=== PATIENT | male | born 1965 | race Caucasian/White ===

== ENCOUNTER 2025-03-17 15:42 | Outpatient (CLI) | payer BC, SELFPAY ==
--- NOTE | ~2025-03-17 | MR_ITS ---
EXAMINATION: MR brain/brain stem wo con DATE: 03/17/2025 16:11 INDICATION: Right facial weakness. TECHNIQUE: Magnetic resonance imaging (MRI) of the brain and brainstem was performed without intravenous contrast. COMPARISON: None. FINDINGS: There is no intracranial hemorrhage, acute infarction, or abnormal intracranial mass lesion. 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 The ventricles are normal in size. The orbits are normal. There is mild mucosal thickening in the paranasal sinuses. The mastoid air cells are normal. IMPRESSION: 1. Small old infarct in left cerebellum. Reviewed, dictated and finalized at location E. ODIAL OPERATIONS MANAGER
== END 2025-03-17 15:43 | disposition home or self-care (01) ==
LOC: MICIMG 15:43
PROVIDERS: PCP Nurse Practitioner Family; Visit Provider Nurse Practitioner Family
DX: R29.810 Facial weakness (principal); M62.81 Muscle weakness (generalized)
CPT/HCPCS: 70551

== ENCOUNTER 2025-03-23 07:56 | Outpatient (CLI) | payer OTHER, SELFPAY ==
[2025-03-23 09:32] LABS: Hemoglobin A1C 5.5 % (<5.7)
[2025-03-23 09:33] LABS: Partial Thromboplastin Time 24.5 Seconds (22.3-36.8)
[2025-03-23 10:34] LABS: MRSA (PCR) NOT DETECTED (NOT DETECTE)
== END 2025-03-23 07:57 | disposition home or self-care (01) ==
LOC: ANHSURGERY 08:02
PROVIDERS: PCP Nurse Practitioner Family; Visit Provider Orthopaedic Surgery
DX: M17.11 Unilateral primary osteoarthritis, right knee (principal); Z01.818 Encounter for other preprocedural examination
CPT/HCPCS: 80307; 83036; 85730; 86850; 86900; 86901; 87641

== ENCOUNTER 2025-03-28 18:43 | Observation (INO) | payer OTHER, SELFPAY ==
--- NOTE | 2025-03-23 07:59 | PC.NURSE ---
[facility] has started construction of its new state of the art ER which will open Spring 2026. With this, we anticipate parking may be a challenge for some our surgical patients and families. Parking spaces are limited but are available for all Surgical, obstetrics, and ER patients sharing this lot. If you arrive and find you are having a hard time finding a parking space, please note that we understand the challenges, please drive around the hospital and park near Hospital Entrance 1. When you enter this entrance, you can ask a volunteer to direct or take you back to the surgical waiting area to check in. We appreciate everyone?s understanding of these expected challenges while we build for your future. Report to the Outpatient Waiting Room, entrance under the green pavilion located off [address], at time _8 am on date _03/27/25 . Planned Procedure Time: _10 am .? Time changes happen often and if your time is changed the preop area will call you the afternoon before. - You and your visitor will be asked to self-screen and do not enter if you have any COVID symptoms. Please call surgeon if you need to reschedule. - A mask is optional within the hospital at this time. Patients may have clear liquids (water, carbonated beverages, clear teas, apple juice) until 3 hours prior to surgery( 7am) with a maximum of 20 ounces. - No food from midnight until time of surgery and no smoking, or chewing tobacco (or any form of nicotine). No chewing gum, candy or mints. Take only the following medications with a SIP of water on the morning of surgery: AMLODIPINE,LEVOTHYROXINE,HYDROCODONE IF NEEDED FOR PAIN DO NOT STOP ANY OF YOUR OTHER PRESCRIPTION MEDICATIONS PRIOR TO SURGERY EXCEPT THE FOLLOWING Hold all vitamins and supplements for 3 days per anesthesiologist. Medications to discontinue per physician ___VALENTINGOVY_HOLD 10 DAYS PRE OP ANESTHESIA LAST DOSE03/16/25. PT STATES LAST DOSE WAS 03/19/25 IBUPROFEN HOLD 7 DAYS PRE OP PER DR MOORE LAST DOSE 03/19/25 Please no make-up, nail persian, hairspray, perfume, deodorant, or body powder the day of surgery.? No jewelry (including any body piercings) or valuables the day of surgery, leave them at home.? Please take a shower or bath the night before, or the morning of, surgery with an antibacterial soap.? Wear comfortable, loose fitting clothing.? Children are encouraged to wear pajamas. - Jewelry must be removed prior to entering the operating room.? Rings and piercings that are not removed may be cut off. - The hospital will not accept responsibility for valuables.? - Please leave all valuables, including medications, at home the day of surgery. If you are going home after surgery, a licensed sprinkler truck driver must drive you home.? - NO public transportation without another adult if you receive anesthesia. - We recommend that an adult stay with you for 24 hours following discharge. - We also recommend that you do not drive, make important decision, drink alcoholic beverages, or take any drugs that were not prescribed by your health care provider for at least 24 hours after your discharge time. For Pediatric surgeries, we recommend two adults accompany the child home. Follow any additional instructions given to you from your surgeon. VERBAL AND WRITTEN instructions given to __PATIENT and asked if any additional questions and then verbalized understanding. Patient advised to call surgeon office or pre surgery nurse liaison [phone] if any additional questions.
[2025-03-23 08:05] VITALS: BMI 32.3
[2025-03-23 09:04] VITALS: BP 136/82; PULSE 73; RESP 18; TEMP 37; O2SAT 100
[2025-03-27] VITALS (17 sets, daily range): BP systolic 109–131; BP diastolic 59–73; PULSE 72–99; RESP 11–18; TEMP 36.1–37; O2SAT 89–100; BMI 31.9
--- OUTSIDE RECORDS SUMMARY | 2025-03-27 01:47 | XMS_ITS | Clinical Summary ---
Author Organization [facility] Address [address] [place] [id number] Care Team Providers Care Cattle Dipper Name Role Phone Zac Calloway MD Primary Care Provider Allergies No known active allergies Medications albuterol HFA (PROVENTIL HFA,VENTOLIN HFA,PROAIR HFA) 90 mcg/actuation inhalerIndications :Acute Asthma Attack Inhale 2 puffs 4 (four) times a day Active budesonide-formote roL (SYMBICORT) 160-4.5 mcg/actuation inhaler Inhale 2 puffs 2 (two) times a day Rinse mouth with water after use. Do not swallow. Active cetirizine (ZyrTEC) 10 mg tablet Take 10 mg by mouth daily Active etodolac (LODINE) 200 mg capsule Take 200 mg by mouth 2 (two) times a day Active levothyroxine (SYNTHROID) 50 mcg tablet Take 50 mcg by mouth agent licensing clerk before breakfast Active lisinopriL (PRINIVIL,ZESTRIL) 20 mg tablet Take 20 mg by mouth daily Active omeprazole (PriLOSEC) 40 mg capsule Take 40 mg by mouth daily Active ondansetron ODT (ZOFRAN-ODT) 4 mg disintegrating tablet Take 4 mg by mouth every 8 (eight) hours as needed for nausea or vomiting Active rOPINIRole (REQUIP) 1 mg tablet Take 1 mg by mouth nightly Active rosuvastatin (CRESTOR) 20 mg tablet Take 20 mg by mouth daily Active tiotropium bromide (SPIRIVA RESPIMAT) 2.5 mcg/actuation inhaler Inhale 2 puffs daily Active traMADoL (ULTRAM) 50 mg tablet Take 50 mg by mouth every 6 (six) hours Active tamsulosin (FLOMAX) 0.4 mg extended release capsule Take 1 capsule (0.4 mg total) by mouth daily While ureteral stents in place 30 capsule 10/30/19 21 Active oxybutynin (DITROPAN) 5 mg tablet Take 1 tablet (5 mg total) by mouth 3 (three) times a day as needed (stent pain) 30 tablet 10/30/19 21 Active docusate sodium (COLACE) 100 mg capsuleIndications :constipation Take 1 capsule (100 mg total) by mouth 2 (two) times a day as needed for constipation 60 capsule 10/30/19 21 Active cephalexin (KEFLEX) 500 mg capsuleIndications :Prophylaxis, Medical Take one capsule by mouth 30 minutes before stent removal 1 capsule 10/30/19 21 Active Active Problems Problem Noted Date Diagnosed Date Kidney stone on right side 10/28/2020 Right flank pain 10/28/2020 Resolved Problems Problem Noted Date Diagnosed Date Resolved Date H/O right flank pain 10/28/2020 021 Surgical History Surgery Date Site/Laterality Comments APPENDECTOMY CHOLECYSTECTOMY OPEN Medical History Medical History Date Comments Hypertension Thyroid disease Asthma GERD (gastroesophageal reflux disease) Restless leg syndrome Kidney stone Family History Medical History Relation Name Comments Heart disease Brother Lung cancer Father Uterine cancer Mother Relation Name Status Comments Brother Father Mother Social History Tobacco Use Types Packs/Day Years Used Date Smoking Tobacco: Never Smokeless Tobacco: Never Tobacco Cessation:Counseling Given: No Sex and Gender Information Value Date Recorded Sex Assigned at Not on file Legal Sex 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 [employer]ESS[employer] Gender Identity Male 01/19/2021 3:21 PM CDT Sexual Orientation Not on file Last Filed Vital Signs Vital Sign Reading Time Taken Comments Blood Pressure 145/87 10/29/2020 3:00 PM CDT Pulse 65 10/29/2020 3:00 PM CDT Temperature 36.5 C (97.7 F) 10/29/2020 1:19 PM CDT Returned to unit Respiratory Rate 16 10/29/2020 3:00 PM CDT Oxygen Saturation 97% 10/29/2020 3:0 0 PM CDT Inhaled Oxygen Concentration - - Weight 108.9 kg (240 lb) 10/28/2020 12: 16 AM CDT Height 177.8 cm (5' 10) 10/28/2020 12: 16 AM CDT Body Mass Index 34.44 10/28/2020 12:16 AM CDT Plan of Treatment Health Maintenance Due Date Last Done Comments Colon Cancer Screening-Colonoscopy 1964 Depression Screening 1964 Hepatitis C Screening 1964 Prostate Cancer Screening-PSA 1964 Hepatitis B Screening 1982 Regular Well Visit/Exam 18-64 1982 Zoster Vaccine (1 of 2) 2014 Pneumococcal vaccine <65 (2 of 2 - PCV) 07/22/2015 07/21/2014 Influenza Vaccine (#1) 2024 , 01/02/2018, 01/02/2018, Additional history exists DTaP/Tdap/Td Vaccine (2 - Td or Tdap) 01/13/2032 01/12/2022 Medical Devices Explanted Type Area Exhibitions Curator Device Identifier Shelf Expiration Date Model / Serial / Lot [employer] [id number] Universa 6fr 26cm Radiopaque Positioner Monofilament Tether 2 - Sna - [id number] Implanted:Qty: 1 on 10/29/2020 by Ivná Phillips MD at [facility] Explanted:Qty: 1 on 11/15/2020 by Alia Denson NP Stent Right: [employer] [id number] 08/10/2023 [id number] / NA / [id number] [place] [address] [facility] ACCESS CHOICE ANTHEM ACCESS CHOICE Advance Directives For more information, please contact: [phone] * Full Code (Latest Code Status on File) Date Activated Date Inactivated Comments 10/28/2020 2:51 AM 10/29/2020 10:28 PM Care Teams Cattle Dipper Relationship Specialty Start Date End Date Zac Calloway MD PCP - General Internal Medicine 10/27/20
--- OUTSIDE RECORDS SUMMARY | 2025-03-27 01:47 | XMS_ITS | Clinical Summary ---
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 Gender Identity Not on file Sexual Orientation Not on file Plan of Treatment Health Maintenance Due Date Last Done Comments Hepatitis C Virus (HCV) Screening 1964 TdaP Immunization 1964 Cologuard 2009 Colonoscopy 2009 Colorectal Cancer Screening 2009 Immunochemical Fecal Occult Blood 2009 Zoster Immunization (1 of 2) 2014 Pneumococcal Immunization (50+ years) (2 of 2 - PCV) 07/22/2015 07/21/2014 Influenza Immunization (#1) 12/15/202401/14, 01/02/2018, 01/03/2017, Additional history exists SARS-COV-2 Immunization ( season) 2024 Respiratory Syncytial Virus (RSV) Immunization (Adult) (1 - 1-dose 75+ series) 06/21/2039 Pneumococcal Immunization Combined Discontinued 07/21/2014 Hepatitis B Immunization Aged Out No longer eligible based on patient's age to complete this topic Human Papillomavirus (HPV) Immunization Aged Out No longer eligible based on patient's age to complete this topic Meningococcal Immunization (ACWY) Aged Out No longer eligible based on patient's age to complete this topic Rotavirus Immunization Aged Out No lo nger eligible based on patient's age to complete this topic
[2025-03-27] MEDS: TRANEXAMIC ACID 1,000MG/ISO100 1,000 MG/100 ML BAG 200 MG IVPB (07:55)
[2025-03-27] MEDS: ACETAMINOPHEN 500 MG TABLET 1000 MG PO (07:55)
[2025-03-27] MEDS: LACTATED RINGERS 1,000 ML 30 ML IV CONT ×2 (07:55→11:51)
[2025-03-27] MEDS: VANCOMYCIN 1,500 MG/NS 500 ML BAG 250 MG IVPB (07:55)
--- NOTE | 2025-03-27 08:28 | WPDHPUPDATE1 ---
History and Physical Update Update Date/Time: 03/27/25 08:28 History and Physical has been reviewed, including an updated exam of the patient. There are NO changes in the patient's condition. Risks, benefits, and alternatives have been discussed and questions answered. Patient agrees to proceed with procedure. The planned procedure is a right total knee replacement. The risks include but are not limited to infection DVT bleeding nerve injury, the patient and his and daughter were present they understand the procedure and they are willing to proceed. All questions were asked and answered.
--- NOTE | 2025-03-27 08:31 | PM.IMHP2 ---
H&P: HPI History of Present Illness Date/Time: 03/27/25 08:31 Chief Complaint: Right knee pain Narrative: The patient is 59-year-old with recently symptomatic arthritis of the right knee. The patient was in his usual state of health until he reports twisting his knee more than a year ago while at work with the initiation of it incessant pain that was not responsive to conservative measures which included intra-articular injections, oral anti-inflammatory medications, bracing, topical anti-inflammatory medications. The patient was experiencing persistent severe right knee pain that interfered with his sleep and also with his ability to perform his obligations at work with regards to walking on a regular basis. [facility] Social History Social History Smoking status: Never smoker Additional smoking assessment comments: DENIES ANY FORM OF TOBACCO USE Alcohol intake: current Drinks per week: 5 Living arrangements: with family Spiritual care concerns: No Meds Home Medications and Allergies Home Medications ?Medication ?Instructions ?Recorded ?Confirmed ?Type albuterol sulfate 90 mcg/actuation 2 puff inhalation PRN WHEEZING 03/23/25 03/27/25 History aerosol inhaler allopurinol 100 mg tablet 200 mg PO DAILY 03/23/25 03/27/25 History amlodipine 5 mg tablet 5 mg PO DAILY 03/23/25 03/27/25 History cetirizine 10 mg tablet (Aller-Will) 10 mg PO DAILY PRN allergy symptoms 03/23/25 03/27/25 History ezetimibe 10 mg tablet 10 mg PO DAILY 03/23/25 03/27/25 History hydrocodone 10 mg-acetaminophen 1 tablet PO PRN PRN pain 03/23/25 03/23/25 History 325 mg tablet ibuprofen 200 mg tablet (Advil) 800 mg PO Q6H PRN pain 03/23/25 03/23/25 History levothyroxine 75 mcg tablet 75 mcg PO DAILY 03/23/25 03/27/25 History olmesartan 40 1 tablet PO DAILY 03/23/25 03/27/25 History mg-hydrochlorothiazide 25 mg tablet omeprazole 40 mg capsule,delayed 40 mg PO DAILY 03/23/25 03/27/25 History release semaglutide (weight loss) 1 mg/0.5 1 mg subcut WEEKLY 03/23/25 03/27/25 History mL subcutaneous pen injector (Wegovy) testosterone 4 pump topical DAILY 03/23/25 03/27/25 History tramadol 50 mg tablet 50 mg PO PRN PRN pain 03/23/25 03/23/25 History zolpidem 5 mg tablet 5 mg PO HS 03/23/25 03/27/25 History Allergies Allergy/AdvReac Type Severity Reaction Status Date / Time No Known Allergies Allergy Unknown Unverified 02/03/18 14:21 GRAPE JUICE Allergy Unknown Hives Uncoded 03/23/25 08:10 Exam Narrative: Exam of the patient's right knee shows that he has a moderate effusion with tenderness to palpation over the medial joint he lacks about 5? of full extension and could flex to 100? with significant pain. There is no erythema no warmth. Previous incision site from a previous prepatellar bursectomy is noted. He has intact sensation to this extremity. He has a palpable dorsalis pedis pulse. Quadriceps strength is 4/5 Const: General: cooperative, healthy appearing, comfortable, no acute distress, well developed, alert, awake and Physically active Nutritional Appearance: average body habitus Orientation/consciousness: oriented to person, oriented to place, oriented to time and patient oriented x3 Assessment and Plan Assessment and plan (1) Arthritis of right knee: Code(s): M17.11 - Unilateral primary osteoarthritis, right knee Status: Acute Plan 59-year-old male with right knee arthritis, exacerbation by recent injury sustained at work. His right knee is now symptomatic and nonresponsive to conservative measures. He is therefore indicated for a right total knee replacement. The risks benefits alternatives complications were discussed with the patient and his family. They include but not limited to infection nerve or blood vessel injury bleeding DVT, and they agreed to proceed. All questions were asked and answered
[2025-03-27 08:46] LABS: INR 1.0; Prothrombin Time 13.6 Seconds (11.1-14.7)
--- NOTE | 2025-03-27 08:49 | WPDANESEPPF ---
Anes - Initial Pre Proc Eval Procedure: Operation Date: 03/27/25 09:00 Proposed Procedures p Right Total Knee Arthroplasty - Walter Trejo MD Date/Time: 03/27/25 08:49 Surgeon: Walter Trejo MD Pre Op Diagnosis: Right Knee O A Patient Data Age: 59 Gender: M Height: 1.78 m Weight: 101.1 kg Last Vital Signs Temp 37.0 C 03/27/25 08:15 Pulse 72 03/27/25 08:15 Resp 18 03/23/25 09:04 BP 117/60 03/27/25 08:15 Pulse Ox 97 03/27/25 08:15 O2 Del Method Room Air 03/27/25 08:15 Allergies Allergy/AdvReac Type Severity Reaction Status Date / Time No Known Allergies Allergy Unknown Unverified 02/03/18 14:21 GRAPE JUICE Allergy Unknown Hives Uncoded 03/23/25 08:10 Home Medications ?Medication ?Instructions ?Recorded ?Confirmed ?Type albuterol sulfate 90 mcg/actuation 2 puff inhalation PRN WHEEZING 03/23/25 03/27/25 History aerosol inhaler allopurinol 100 mg tablet 200 mg PO DAILY 03/23/25 03/27/25 History amlodipine 5 mg tablet 5 mg PO DAILY 03/23/25 03/27/25 History cetirizine 10 mg tablet (Aller-Will) 10 mg PO DAILY PRN allergy symptoms 03/23/25 03/27/25 History ezetimibe 10 mg tablet 10 mg PO DAILY 03/23/25 03/27/25 History hydrocodone 10 mg-acetaminophen 1 tablet PO PRN PRN pain 03/23/25 03/23/25 History 325 mg tablet ibuprofen 200 mg tablet (Advil) 800 mg PO Q6H PRN pain 03/23/25 03/23/25 History levothyroxine 75 mcg tablet 75 mcg PO DAILY 03/23/25 03/27/25 History olmesartan 40 1 tablet PO DAILY 03/23/25 03/27/25 History mg-hydrochlorothiazide 25 mg tablet omeprazole 40 mg capsule,delayed 40 mg PO DAILY 03/23/25 03/27/25 History release semaglutide (weight loss) 1 mg/0.5 1 mg subcut WEEKLY 03/23/25 03/27/25 History mL subcutaneous pen injector (Toshia) testosterone 4 pump topical DAILY 03/23/25 03/27/25 History tramadol 50 mg tablet 50 mg PO PRN PRN pain 03/23/25 03/23/25 History zolpidem 5 mg tablet 5 mg PO HS 03/23/25 03/27/25 History Laboratory Tests 03/27/25 08:02 PT 13.6 Seconds (11.1-14.7) INR 1.0 Patient hx anesthesia problems: none Family hx anesthesia problems: none Results Review: All pre-operative results and documents have been reviewed as part of the pre-operative evaluation. [facility] Past Medical History Medical History Chronic, continuous use of opioids GERD (gastroesophageal reflux disease) Gout Hyperlipidemia Hypothyroidism Hypertension Social History Social History Smoking status: Never smoker Additional smoking assessment comments: DENIES ANY FORM OF TOBACCO USE Alcohol intake: current Drinks per week: 5 Living arrangements: with family Spiritual care concerns: No Anes - Eval Final PreProcedure Day of Procedure 03/27/25 08:49 Patient weight: obese Heart: regular rate and rhythm Lungs: clear to auscultation and normal air movement Airway: Mallampati scale Neurological: alert and oriented Last oral intake: >/= 8 hours ASA classification: III Emergent: no Anesthetic plan: proceed Anesthesia type and monitoring: general LMA and standard monitoring Results Review: All pre-operative results and documents have been reviewed as part of the pre-operative evaluation. Informed Consent: The patient's anesthetic plan and its attendant risks and benefits were discussed with the patient/family/POA. Questions were solicited and answers provided to the satisfaction of the patient/family/POA.
[2025-03-27] MEDS: ceFAZolin 2 GM in SODIUM CHLORIDE 0.9% IV 50 ML 100 ML IVPB ×2 (09:05→17:23)
[2025-03-27] MEDS: SODIUM CHLORIDE 0.9% IV 37.7 ML, MORPHINE SULFATE INJ (*CRX) 2 MG, ROPivacaine HCL 1% 2... INFILTRATE (09:40)
[2025-03-27] MEDS: TRANEXAMIC ACID 1,000 MG/10 ML AMPUL 1000 MG IV PUSH (11:07)
[2025-03-27] MEDS: fentaNYL CITRATE INJ (*CRX) 100 MCG/2 ML VIAL 25 MCG IV PUSH ×4 (12:33→13:00)
--- NOTE | 2025-03-27 13:14 | WPDANESPNB ---
Anes - Peripheral Nerve Block Date/Time: 03/27/25 13:14 I have discussed with the patient/family/POA the placement of a peripheral nerve block for post-operative pain management, including associated risks, benefits, complications, and side effects. Alternative methods of post-operative analgesia were detailed. Questions were solicited and answers provided to the satisfaction of the patient/family/POA. Time-Out: A pre-procedural Time-Out was completed immediately before starting the procedure and confirmed: Patient Identification, Site, Procedure, Patient Position and the Availability of Requisite Equipment. Clinical Indications: Acute post-operative pain management requested by the operative surgeon. Nerve Block Insertion Note Anes-nerve block: adductor canal right Patient position: supine Skin prep: chlorhexidine Needle: 22 gauge, stimulating, insulated echogenic needle. Needle length: 80 mm Technique: ultrasound Injectate: bupivacaine 0.5% with epi 5 mcg/ml (30cc - no epi) Observations: tolerated well Complications: none Procedure start time:: 1307 Procedure end time:: 1310
[2025-03-27] MEDS: oxyCODONE HCL (*CRX) 2.5 MG TAB IR 7.5 MG PO (14:37)
[2025-03-27] MEDS: SODIUM CHLORIDE 0.9% IV 1,000 ML 125 ML IV CONT (14:43)
[2025-03-27] MEDS: HYDROmorphone HCL INJ (*CRX) 1 MG/ML SYR 0.5 MG IV PUSH (16:18)
--- NOTE | 2025-03-27 16:27 | W.PM.PROC2 ---
Procedure Note - Detailed Date of Procedure 03/27/25 Pre-op Diagnosis Right Knee Arthritis Post-op Diagnosis Same Procedure Performed Right Total Knee Replacement Surgeon Walter Trejo MD Anesthesia General Indications Failure to respond to conservative management of Right Knee Arthritis Findings Right Knee Arthritis Description of Procedure After interviewing the patient in the holding area with his Taina I answered all questions. The right knee was then marked in the holding area. Patient was then brought to the operating room placed in supine position which time he underwent general anesthesia a time-out was performed prior to the procedure in order to verify correct site for surgery correct patient and correct procedure as well as to verify that antibiotics IV were administered within 1 hour of the incision time The right lower extremity was prepped and draped in standard sterile fashion with tourniquet around the thigh was placed but was not used. Midline incision was made dissection carried down medial arthrotomy performed the distal femur exposed marginal osteophytes removed. I then created an opening hole into the distal femur to place my intramedullary sebastian. I then placed my intramedullary sebastian then placed in my distal femoral cutting guide. I then resected 9 mm off the medial side and 5 mm off the lateral side with a distal valgus cut of 5? of valgus. I then proceeded to place my sizing guide and determined that he had 3? of external rotation determined a size 5 for the femoral side. I then proceeded to do my 4 in 1 cuts my anterior cut posterior cut anterior-posterior chamfer cuts. I then proceeded to turn my attention to the tibia at which time used extramedullary guide to resect 2 mm off the medial side and 7 mm off the lateral side. I then proceeded to irrigate copiously I did my trial I noted that a size 5 with a 10 mm polyethylene spacer with a size 5 tibial plate had excellent toe range of motion with full extension and the medial and lateral compartments were equally tension and symmetric both in flexion and extension and the patella tracked perfectly with no evidence of lateral subluxation. I did remove the osteophytes off of the patella. These were marginal osteophytes. I then proceeded to prepare the proximal tibia. I then placed the tibial component in 1st with a 10 mm polyethylene spacer and then a 5 size 5 femoral component. The exact same stability profile was noted. We then irrigated copiously and injected with Bia's solution the periarticular tissues. Attain hemostasis. I then proceeded to close the medial arthrotomy using 2.0 Vicryl suture interrupted and closed skin using 2-0 Vicryl suture and then a glue was placed. The patient was then transferred to the recovery room in stable condition. Implants Destin noncemented total knee replacement with a size 5 femur and a size 5 tibia with a 10 mm polyethylene spacer. Estimated Blood Loss 100 Tourniquet Time Total Tourniquet Time: 0 Drains No Packing No Pathology None sent Complications No immediate complications Condition Stable Disposition PACU
[2025-03-27] MEDS: ACETAMINOPHEN 325 MG TABLET 650 MG PO (17:23)
[2025-03-27] MEDS: KETOROLAC 15 MG/ML VIAL (*BKC) IV PUSH (17:24)
[2025-03-27] MEDS: oxyCODONE HCL (*CRX) 5 MG TAB IR PO ×2 (18:38→22:36)
[2025-03-27] MEDS: ONDANSETRON INJ 4 MG/2 ML VIAL IV PUSH (20:44)
[2025-03-27] MEDS: HYDROmorphone HCL INJ (*CRX) 1 MG/ML SYR IV PUSH (20:44)
[2025-03-27] MEDS: ASPIRIN 81 MG ENTERIC TABLET PO (20:45)
[2025-03-27] MEDS: FAMOTIDINE 20 MG TABLET PO (20:46)
[2025-03-27] MEDS: SENNA/DOCUSATE SODIUM TABLET 2 TAB PO (20:46)
--- NOTE | ~2025-03-28 | XR_ITS ---
EXAMINATION: [id number] DATE: 03/27/2025 12:20 INDICATION: Postoperative evaluation following right total knee arthroplasty. TECHNIQUE: Anteroposterior and lateral views of the right knee were obtained. COMPARISON: None. FINDINGS: Right total knee arthroplasty without patellar resurfacing appears well seated and in near anatomic alignment. No fractures identified. Expected postoperative subcutaneous and intra-articular gas. IMPRESSION: 1. Right total knee arthroplasty, negative for postoperative purposes. Reviewed, dictated and finalized at location A. HMASTER LEAD
[2025-03-28] MEDS: HYDROmorphone HCL INJ (*CRX) 1 MG/ML SYR IV PUSH ×6 (00:28→22:27)
[2025-03-28] MEDS: ACETAMINOPHEN 325 MG TABLET 650 MG PO ×4 (00:29→17:59)
[2025-03-28] MEDS: KETOROLAC 15 MG/ML VIAL (*BKC) IV PUSH ×4 (00:29→17:59)
[2025-03-28] MEDS: ceFAZolin 2 GM in SODIUM CHLORIDE 0.9% IV 50 ML 100 ML IVPB ×2 (01:14→09:26)
[2025-03-28 01:54] VITALS: BP 129/65; PULSE 86; RESP 17; TEMP 36.2; O2SAT 97
[2025-03-28] MEDS: oxyCODONE HCL (*CRX) 5 MG TAB IR PO ×5 (02:23→20:35)
[2025-03-28 05:10] VITALS: BP 105/60; PULSE 68; RESP 17; TEMP 36.8; O2SAT 98
[2025-03-28 06:24] LABS: Hematocrit 34.6 % (42.0-52.0); Hemoglobin 10.7 g/dL (14.0-18.0); Immature Granulocyte Percent A 0.4 % (0-0.5); Lymphocytes Absolute Auto 0.96 K/mm3 (0.9-3.2); Mean Corpuscular HGB Conc 30.9 g/dl (32-36); Mean Corpuscular Hemoglobin 23.1 pg (26-34); Mean Corpuscular Volume 74.6 fl (80-100); Nucleated Red Blood Cells Absolute Auto 0.000 K/mm3 (0.0-0.012); Nucleated Red Blood Cells Perc 0.0 % (0.0-0.2); Platelet Count Result 259 k/mm3 (150-375); Red Blood Count 4.64 M/mm3 (4.6-6.20); White Blood Count 8.5 K/mm3 (4.5-10.0)
[2025-03-28] MEDS: LEVOTHYROXINE SODIUM 75 MCG TABLET PO (06:29)
[2025-03-28 06:43] LABS: Anion Gap 6 mmol/L (4-12); Blood Urea Nitrogen 17 mg/dL (9-20); Calcium 8.6 mg/dL (8.4-10.2); Carbon Dioxide 27 mmol/L (22-30); Chloride 102 mmol/L (98-107); Estimated CRCL calculation 68 ml/min; Estimated Glomerular Filt Rate 60; Glucose 104 mg/dL (65-110); Potassium 3.4 mmol/L (3.4-5.0); Sodium 135 mmol/L (137-145)
[2025-03-28 06:45] LABS: Hypochromasia Occasional; Microcytosis 1+ (NORMAL); Ovalocytes 1+
[2025-03-28 06:47] LABS: Schistocytes None Seen
[2025-03-28] MEDS: HYDROmorphone HCL INJ (*CRX) 1 MG/ML SYR 0.5 MG IV PUSH (07:53)
[2025-03-28] MEDS: OLMESARTAN MEDOXOMIL 20 MG TABLET 40 MG PO (07:55)
[2025-03-28] MEDS: EZETIMIBE 10 MG TABLET PO (07:55)
[2025-03-28] MEDS: SENNA/DOCUSATE SODIUM TABLET 2 TAB PO ×2 (07:56→20:36)
[2025-03-28] MEDS: ASPIRIN 81 MG ENTERIC TABLET PO ×2 (07:56→20:34)
[2025-03-28] MEDS: FAMOTIDINE 20 MG TABLET PO ×2 (07:56→15:41)
[2025-03-28] MEDS: PANTOPRAZOLE 40 MG TABLET PO ×2 (07:56→20:36)
[2025-03-28 10:09] VITALS: BP 115/65; PULSE 85; RESP 20; TEMP 35.7; O2SAT 95
[2025-03-28 14:09] VITALS: BP 104/62; PULSE 75; RESP 19; TEMP 36.2; O2SAT 93
[2025-03-28 21:12] VITALS: BP 123/51; PULSE 85; RESP 18; TEMP 36.4; O2SAT 98
[2025-03-29] MEDS: oxyCODONE HCL (*CRX) 5 MG TAB IR PO ×3 (00:29→09:35)
[2025-03-29] MEDS: ACETAMINOPHEN 325 MG TABLET 650 MG PO ×3 (00:30→11:53)
[2025-03-29] MEDS: HYDROmorphone HCL INJ (*CRX) 1 MG/ML SYR IV PUSH (03:01)
[2025-03-29 04:30] VITALS: BP 142/69; PULSE 100; RESP 16; TEMP 36.7; O2SAT 95
[2025-03-29] MEDS: LEVOTHYROXINE SODIUM 75 MCG TABLET PO (05:32)
--- NOTE | 2025-03-29 07:02 | PM.PNORT ---
Progress Note: A&P Assessment and Plan (1) Status post total right knee replacement: Code(s): Z96.651 - Presence of right artificial knee joint Status: Acute Plan POD 1 Right Total Knee doing well, possible discharge tomorrow. Subjective Subjective Date/Time Seen: 03/28/25 3pm Post Op day: 1 (Right total knee) Principal diagnosis: Right Total Knee Replacement Interval history: Pain well controlled, ambulated in hallway with physical therapy, sitting up and comfortable on my interview today with Taina. Exam Narrative: Right knee bandaged and dry Objective Data Vital Signs Vital Signs: Vital Signs - 24 hr 03/28/25 10:09 03/28/25 14:09 03/28/25 21:12 Temperature 35.7 C L 36.2 C L 36.4 C L Pulse Rate 85 75 85 Respiratory Rate 20 19 18 Blood Pressure 115/65 104/62 123/51 L Pulse Oximetry 95 93 98 03/29/25 04:30 Temperature 36.7 C Pulse Rate 100 Respiratory Rate 16 Blood Pressure 142/69 H Pulse Oximetry 95 Intake/Output Intake/Output: Intake & Output 03/26/25 03/27/25 03/28/25 03/29/25 23:59 23:59 23:59 23:59 Intake Total 740 800 200 Balance 740 800 200 Meds/Results Medications: Active Medications Generic Name Dose Route Start Last Admin Trade Name Freq PRN Reason Stop Dose Admin Acetaminophen 650 mg 03/27/25 18:00 03/29/25 05:32 Acetaminophen 325 Mg Tablet PO 650 mg Q6HR ITALIA Administration Allopurinol 200 mg 03/28/25 09:00 03/28/25 07:56 Allopurinol 100 Mg Tablet PO 200 mg DAILY ITLAIA Administration Amlodipine Besylate 5 mg 03/28/25 09:00 03/28/25 07:55 Amlodipine Besylate 5 Mg Tablet PO 5 mg DAILY ITALIA Administration Aspirin 81 mg 03/27/25 21:00 03/28/25 20:34 Aspirin 81 Mg Enteric Tablet PO 81 mg Q12HR ITALIA Administration Diphenhydramine HCl 25 mg 03/27/25 12:24 Diphenhydramine Hcl Inj 50 Mg/Ml Vial IV PUSH Q6H PRN Itching Ezetimibe 10 mg 03/28/25 09:00 03/28/25 07:55 Ezetimibe 10 Mg Tablet PO 10 mg DAILY ITALIA Administration Famotidine 20 mg 03/27/25 21:00 03/28/25 15:41 Famotidine 20 Mg Tablet PO 20 mg Q12HR ITALIA Administration Gabapentin 600 mg 03/29/25 09:00 Gabapentin 300 Mg Capsule PO TID ITALIA Hydrochlorothiazide 25 mg 03/28/25 09:00 03/28/25 07:55 Hydrochlorothiazide 25 Mg Tablet PO 25 mg QAM [facility] Administration Hydromorphone HCl 1 mg 03/27/25 12:24 03/29/25 03:01 Hydromorphone Hcl Inj (*Crx) 1 Mg/Ml Syr IV PUSH 1 mg Q2H PRN Administration Breakthrough Pain Rated 7-10 or NPO Hydromorphone HCl 0.5 mg 03/27/25 12:24 03/28/25 07:53 Hydromorphone Hcl Inj (*Crx) 1 Mg/Ml Syr IV PUSH 0.5 mg Q2H PRN Administration Breakthrough Pain Rated 4-6 or NPO Levothyroxine Sodium 75 mcg 03/28/25 06:30 03/29/25 05:32 Levothyroxine Sodium 75 Mcg Tablet PO 75 mcg DAILY@0630 [facility] Administration Loratadine 10 mg 03/27/25 13:56 Loratadine 10 Mg Tablet PO QAM PRN allergy symptoms Methocarbamol 500 mg 03/28/25 21:00 03/28/25 20:34 Methocarbamol 500 Mg Tablet PO 500 mg QID [facility]AL[facility] Administration Naloxone HCl 0.1 mg 03/27/25 12:24 Naloxone Hcl 0.4 Mg/Ml Vial IV PUSH Q2M PRN Opiate Reversal Olmesartan 40 mg 03/28/25 09:00 03/28/25 07:55 Olmesartan Medoxomil 20 Mg Tablet PO 40 mg QAM [facility] Administration Ondansetron HCl 4 mg 03/27/25 12:24 03/27/25 20:44 Ondansetron Inj 4 Mg/2 Ml Vial IV PUSH 4 mg Q4H PRN Administration Nausea And Vomiting Oxycodone HCl 5 mg 03/27/25 12:28 03/29/25 05:31 Oxycodone Hcl (*Crx) 5 Mg Tab Ir PO 5 mg Q4H PRN Administration Pain Rated 4-6 Oxycodone HCl 7.5 mg 03/27/25 12:38 03/27/25 14:37 Oxycodone Hcl (*Crx) 2.5 Mg Tab Ir PO 7.5 mg ONCE PRN Administration Pain Pantoprazole Sodium 40 mg 03/28/25 09:00 03/28/25 20:36 Pantoprazole 40 Mg Tablet PO 40 mg Q12HR ITALIA Administration Polyethylene Glycol 17 gm 03/28/25 09:00 03/28/25 07:55 Polyethylene Glycol 3350 17 Gm Powd.Pack PO 17 gm QAM [facility] Administration Senna/Docusate Sodium 2 tab 03/27/25 21:00 03/28/25 20:36 Senna/Docusate Sodium Tablet PO 2 tab Q12HR ITALIA Administration Tramadol HCl 50 mg 03/27/25 12:28 Tramadol Hcl (*Crx) 50 Mg Tablet PO Q4H PRN Pain Rated 1-3 Radiology Results: ITS Impressions Knee X-Ray 03/27/25 12:33 IMPRESSION: 1. Right total knee arthroplasty, negative for postoperative purposes.
--- NOTE | 2025-03-29 08:14 | PCOTNOTE ---
Downgrading frequency (from daily to 3-5x/week) for treatments due to patient progressing well.
[2025-03-29] MEDS: ASPIRIN 81 MG ENTERIC TABLET PO (08:31)
[2025-03-29] MEDS: EZETIMIBE 10 MG TABLET PO (08:32)
[2025-03-29] MEDS: SENNA/DOCUSATE SODIUM TABLET 2 TAB PO (08:32)
[2025-03-29] MEDS: PANTOPRAZOLE 40 MG TABLET PO (08:32)
[2025-03-29] MEDS: FAMOTIDINE 20 MG TABLET PO (08:32)
[2025-03-29] MEDS: GABAPENTIN 300 MG CAPSULE 600 MG PO ×2 (08:32→12:08)
[2025-03-29] MEDS: OLMESARTAN MEDOXOMIL 20 MG TABLET 40 MG PO (08:33)
--- NOTE | 2025-03-29 13:55 | PM.DS ---
DS: Admitting Diagnosis Discharge Date March 29, 2025 Admitting Diagnosis right knee arthritis DS: Discharge Diagnosis Discharge Diagnosis (1) Arthritis of right knee: Code(s): M17.11 - Unilateral primary osteoarthritis, right knee Status: Acute Assessment and Plan: 59-year-old male with end-stage right knee arthritis who underwent a right total knee replacement and did very well postoperatively, postop day 2 he was discharged home and instructed to follow-up with my office in 3-4 days Plan patient is to be discharged on pain medications as well as DVT prophylaxis which is 81 mg of aspirin twice a day for 4 weeks, pain medication prescription has already been provided to the patient in physical therapy will start next week DS: Summary Hospital Course Reason for hospitalization: right knee arthritis Hospital Course: postoperatively the patient did very well with no issues did stairs and walk to the hallway with no issues and was treated postoperatively with aspirin for DVT prophylaxis Status at Discharge Cognitive/behavioral status at discharge: for stable Functional status at discharge: uses cane/walker Time Spent with Patient Time attestation: Total time spent providing and/or coordinating discharge services: Discharge Plan Discharge Attending physician on discharge: Walter Trejo Discharging Clinician: Walter Trejo Anticipated Discharge Date/Time: 03/29/25 13:42 Patient Disposition: Home Activity: may shower Diet: as tolerated Wound Care Instructions: keep dressing dry Discharge Instructions: 1. May remove YULIYA wrap to shower, keep dressing dry. 2. Ankle Pumps 2 mins, 3-4x per hour while sitting 3. Active Knee Bending as instructed while sitting in Chair 4. When laying in bed, no pillow under knee. 5. Ice 2-3 hours per day divided into 3 sessions or more. 6. Baby Aspirin 2x/day for 4 weeks from date of surgery. 7. Take Pain medications (as well as Gabapentin and Flexeril) as scheduled. 8. Follow up with Dr Trejo Wed or Tiffanie (call office to confirm on date and time) Patient Instructions: Antibiotic Form Patient Language: Bhutanese Stand Alone Forms: General Discharge Information Follow-up/Referrals: Walter Trejo MD [Physician, Orthopedics] Discharge Medications: New cyclobenzaprine 10 mg tablet 10 mg PO BID PRN (Reason: muscle spasm) 8 Days Qty: 10 0RF aspirin 81 mg Tablet,Delayed Release (Dr/Ec) 81 mg PO Q12HR Qty: 60 0RF Continued omeprazole 40 mg capsule,delayed release(DR/EC) 40 mg PO DAILY levothyroxine 75 mcg tablet 75 mcg PO DAILY amlodipine 5 mg tablet 5 mg PO DAILY olmesartan-hydrochlorothiazide 40-25 mg tablet 1 tablet PO DAILY allopurinol 100 mg tablet 200 mg PO DAILY ezetimibe 10 mg tablet 10 mg PO DAILY zolpidem 5 mg tablet 5 mg PO HS cetirizine [Aller-Will] 10 mg tablet 10 mg PO DAILY PRN (Reason: allergy symptoms) Wegovy 1 mg/0.5 mL pen injector 1 mg SUBCUT WEEKLY Patient Comments: FOR WEIGHT LOSS TAKES ON THURSDAYS albuterol sulfate 90 mcg/actuation HFA aerosol inhaler 2 puff INHALATION PRN hydrocodone-acetaminophen 10-325 mg tablet 1 tablet PO PRN PRN (Reason: pain) testosterone 20.25 mg/1.25 gram (1.62 %) gel in metered-dose pump 4 pump topical DAILY ibuprofen [Advil] 200 mg tablet 800 mg PO Q6H PRN (Reason: pain) Discontinued tramadol 50 mg tablet 50 mg PO PRN PRN (Reason: pain) Other Ambulatory Orders: Prothrombin Time INR (Routine) Timeframe: [id number] Location: Determined by Patient Ordered By: Walter Trejo Date of admission: 03/28/25 18:43 Primary Care Provider: Brodie,David Avilez Admitting Provider: Walter Trejo Attending physician on admission: Walter Trejo Condition: Stable Care Plan Goals: physical therapy will start next week 3 times a week for 6 weeks
[2025-03-29 14:00] VITALS: BP 126/62; PULSE 95; RESP 21; TEMP 36.3; O2SAT 97
== END 2025-03-29 14:33 | disposition home or self-care (01) ==
LOC: ANHSURGERY 03-29 05:58 → ANH3MEDSUR 03-29 05:58
PROVIDERS: Anesthesiology; Admitting Provider Orthopaedic Surgery; PCP Nurse Practitioner Family; Visit Provider Orthopaedic Surgery
PROC: (CPT 27447; principal; 2025-03-27 09:00)
DX: M17.11 Unilateral primary osteoarthritis, right knee (principal); M70.41 Prepatellar bursitis, right knee; K21.9 Gastro-esophageal reflux disease without esophagitis; E78.5 Hyperlipidemia, unspecified; E03.9 Hypothyroidism, unspecified; M10.9 Gout, unspecified; Z79.891 Long term (current) use of opiate analgesic; Z79.890 Hormone replacement therapy; Z79.60 Long term (current) use of unspecified immunomodulators and immunosuppressants; Z79.85 Long-term (current) use of injectable non-insulin antidiabetic drugs
CPT/HCPCS: 27447; 36415; 73560; 80048; 85025; 85610; 97110; 97116; 97161; 97165; 97530; 97535; J0690; A9270; C1713; C1776; G0378; J0166; J1171; J1885; J2250; J2270; J2405; J2795; J3010; J3290; J3373; J7030; J7120